=== PATIENT | male | born 1995 | race Caucasian/White ===

== ENCOUNTER 2020-08-25 20:51 | Emergency (ER) | payer OTHER ==
[2020-08-25 21:24] LABS: HEMOGLOBIN 17.6 gm/dl (14.0-17.5); RED BLOOD COUNT 5.36 M/UL (4.20-5.50); WHITE BLOOD COUNT 7.1 K/UL (4.5-11.0)
[2020-08-25 21:45] LABS: BUN/CREATININE RATIO 23 (0-10)
== END 2020-08-26 02:03 | disposition home or self-care (01) ==
LOC: ER1 20:51
PROVIDERS: Emergency Medicine
DX: S00.12XA Contusion of left eyelid and periocular area, initial encounter (principal); R55 Syncope and collapse; R10.31 Right lower quadrant pain; F17.210 Nicotine dependence, cigarettes, uncomplicated; W19.XXXA Unspecified fall, initial encounter
CPT/HCPCS: 36415; 70450; 70486; 80053; 81001; 82150; 83690; 85025; 93005; 99284; Q9967